=== PATIENT | male | born 1960 | race Caucasian/White ===

== ENCOUNTER 2017-04-22 11:28 | Emergency (ER) | payer OTHER ==
[~2017-04-22] VITALS: Wt 70.0 kg
[~2017-04-22 11:28] MED LIST: HYDR28CR43 TOP; IBUP-1542 PO
[2017-04-22] MEDS ORDERED: IBUP-1542 PO (11:38)
[2017-04-22] MEDS ORDERED: DOCU-144 PO (11:38)
--- NOTE | 2017-04-22 11:43 | ERD ---
ER Documentation Chief Complaint Date/Time DATE: 04/22/17 TIME: 11:40 Chief Complaint HPI 57-year-old man here for medical clearance after being arrested by [employer] officers. Patient suffered a right clavicle fracture 3 days ago and stayed at [facility] emergency department all last night because of complaints of pain, he states he was discharged with prescriptions for morphine and [place] which he no longer has. He states he wants analgesics for right clavicle pain. He denies recent head or neck injury, no fevers or chills, no chest pain or shortness of breath. He also states he has constipation and would like a prescription of Colace. ROS All systems reviewed and are negative except as per history of present illness. Medications Home Meds Active Scripts Docusate Sodium* (Colace*) 100 Mg Capsule, 100 MG PO BID for CONSTIPATION, #30 CAP Prov:SERENA PICKENS MD 04/22/17 Ibuprofen* (Ibuprofen*) 600 Mg Tablet, 600 MG PO Q8 for PAIN AND/OR INFLAMMATION , #30 TAB Prov:SERENA PICKENS MD 04/22/17 Ibuprofen* (Ibuprofen*) 600 Mg Tablet, 600 MG PO Q8 for PAIN AND/OR INFLAMMATION , #30 TAB Prov:SERENA PICKENS MD 04/08/16 Hydrocortisone (Neosporin) 1% - 28 Gm Cream..g., 1 APPLIC TOP BID for 14 Days, # 1 TUB Prov:SERENA PICKENS MD 04/08/16 Allergies Allergies: Coded Allergies: No Known Allergy (Unverified , 04/08/16) PMhx/Soc Opioid abuse, constipation, recent fractured clavicle History of Surgery: Yes (KNEE SURGERY) Anesthesia Reaction: No Hx Neurological Disorder: No Hx Respiratory Disorders: No Hx Cardiac Disorders: No Hx Psychiatric Problems: No Hx Miscellaneous Medical Probl: Yes (C5,C6,C7 spine problem,R wrist fx) Hx Alcohol Use: No Hx Substance Use: No Hx Tobacco Use: Yes FmHx Family History: No diabetes Physical Exam Vitals Per nurses records Physical Exam GENERAL: Well-developed, well-nourished, well-hydrated, in no apparent distress , looks nontoxic in appearance HEENT: Moist mucous membranes, pink conjunctiva, no cervical spine tenderness or step-off deformities, no goiter, no jaundice or icterus, extraocular movements intact without pain. No submandibular induration, and no pharyngeal erythema NEURO: Alert and oriented 3, cranial nerves II through XII intact bilaterally, pupils equal round reactive to light, no focal deficits or facial asymmetry, sensation intact distally Strength 5/5 in upper and lower extremities bilaterally CARDIAC: Regular rate and rhythm, no murmurs rubs or gallops LUNGS: Clear bilaterally no wheezing crackles or stridor ABDOMEN: Soft nontender, no guarding, no rigidity, no rebound, no psoas sign no obturator sign. Normoactive bowel sounds SKIN: Warm and dry to touch, no abrasions, contusions, or hematomas, no lacerations, no ecchymosis, no target lesions, and without ulcers EXTREMITIES: Right upper extremity in a sling distal pulses equal bilateral distal sensation equal bilaterally, cap refill less than 2 seconds, sensation to the median, ulnar, radial nerves intact and equal bilaterally. Mild nonerythematous deformity to the anterior mid right clavicle without obvious ecchymosis. PSYCH: Normal affect without agitation or irritability Results 24 hrs Current Medications Medications (Trade) Dose Ordered Sig/Jennyfer Route PRN Reason Start Time Stop Time Status Last Admin Dose Admin Oxycodone/ Acetaminophen (Percocet (5/ 325)) 1 tab ONCE ONCE PO 04/22/17 12:00 04/22/17 12:01 Procedures/MDM I administered Percocet 1 tablet p.o. Patient is okay to book, medically cleared. Differential diagnoses considered, included but not limited to acute coronary syndrome, pulmonary embolism, aortic dissection, abdominal aortic aneurysm, sepsis, stroke, meningitis, encephalitis, pneumonia, appendicitis, cholecystitis , bowel obstruction, pyelonephritis, nephrolithiasis, cystitis, as well as metabolic, hematologic, and electrolyte abnormalities. As well as abscess, cellulitis, fractures, and dislocations. Patient feels much better at this time, and vital signs are normal, symptoms have improved. I did give strict instructions to return to the ED if symptoms continue or worsen, patient will otherwise follow-up with primary care physician. Patient understood instructions and agreed to plan. Disclaimer: Inadvertent spelling and grammatical errors are likely due to EHR/ dictation software use and do not reflect on the overall quality of patient care. Also, please note that the electronic time recorded on this note does not necessarily reflect the actual time of the patient encounter. Departure Diagnosis: Primary Impression: Clavicle pain Additional Impression: Constipation Constipation type: slow transit constipation Qualified Code: K59.01 - Slow transit constipation Condition: Good Patient Instructions: Fracture, Clavicle, Nursing Home Clearance SERENA PICKENS MD Apr 22, 2017 11:43
[2017-04-22 11:57] VITALS: BP 124/84; PULSE 78; RESP 21; TEMP 97.9
[2017-04-22] MEDS ORDERED: OXYCODONE/ACETAMINOPHEN (5/325) TAB PO ONE (12:00)
== END 2017-04-22 12:02 | disposition home or self-care (01) ==
LOC: E/R 11:28
DX: M25.511 Pain in right shoulder (principal); K59.01 Slow transit constipation; Z87.891 Personal history of nicotine dependence
CPT/HCPCS: 99283

== ENCOUNTER 2019-02-23 00:50 | Emergency (ER) | payer OTHER ==
[~2019-02-23] VITALS: Ht 165.1 cm; Wt 65.0 kg
[~2019-02-23 00:50] MED LIST changes: +DOCU-144 PO
[2019-02-23 00:51] VITALS: BP 142/88; PULSE 82; RESP 16; Ht 165.1 cm; Wt 65.0 kg
[2019-02-23] MEDS ORDERED: OXYCODONE/ACETAMINOPHEN (5/325) TAB PO ONE (01:30)
--- NOTE | 2019-02-23 01:31 | ERD ---
ER Documentation Chief Complaint Chief Complaint Pt c/o back pain that is getting worse, pt is threatening to kill EMS HPI This is a 59-year-old male who presents for evaluation of acute on chronic back pain. Patient presents brought in by EMS, he was initially agitated because he wanted to go to [place], stating that he has been seen in the past, he has chronic back pain from multiple surgeries, he states that he only goes to the ER when his back pain is severe. He has received Percocet for this in the past. Once patient was roomed, spoke with him, he was apologetic for his behavior towards EMS, denies any suicidal or homicidal ideations. ROS All systems reviewed and are negative except as per history of present illness. Medications Home Meds Active Scripts Docusate Sodium* (Colace*) 100 Mg Capsule, 100 MG PO BID for CONSTIPATION, #30 CAP Prov:SERENA PICKENS MD 04/22/17 Ibuprofen* (Ibuprofen*) 600 Mg Tablet, 600 MG PO Q8 for PAIN AND/OR INFLAMMATION, #30 TAB Prov:SERENA PICKENS MD 04/22/17 Ibuprofen* (Ibuprofen*) 600 Mg Tablet, 600 MG PO Q8 for PAIN AND/OR INFLAMMATION, #30 TAB Prov:SERENA PICKENS MD 04/08/16 Hydrocortisone (Neosporin) 1% - 28 Gm Cream..g., 1 APPLIC TOP BID for 14 Days, # 1 TUB Prov:SERENA PICKENS MD 04/08/16 Allergies Allergies: Coded Allergies: No Known Allergy (Unverified , 04/08/16) PMhx/Soc History of Surgery: Yes (KNEE SURGERY) Anesthesia Reaction: No Hx Neurological Disorder: No Hx Respiratory Disorders: No Hx Cardiac Disorders: No Hx Psychiatric Problems: No Hx Miscellaneous Medical Probl: Yes (C5,C6,C7 spine problem,R wrist fx) Hx Alcohol Use: Yes Hx Substance Use: Yes Hx Tobacco Use: Yes Physical Exam Vitals Vital Signs Date Temp Pulse Resp B/P (MAP) Pulse Ox O2 O2 Flow FiO2 Time Delivery Rate 02/23/19 98.3 82 16 142/88 98 00:51 (106) Physical Exam Const: No acute distress Head: Atraumatic Eyes: Normal conjunctiva ENT: Normal external ears, nose and mouth. Neck: Resp: Normal respiratory effort Cardio: Abd: Abdomen is soft nontender, nondistended with no rebound or guarding. Skin: Back: There is diffuse tenderness noted over the back, there is no step-off, no flank pain Ext: Neur: Awake and alert Psych: Normal mood and affect Procedures/MDM 59-year-old male presents for acute on chronic back pain. Patient has no neurologic deficits, and no red flags concerning for an emergent cause of back pain. His symptoms are chronic in nature, there may be a component of drug- seeking behavior the patient, and I addressed this with him, however he he does have real pathology, and had an extensive discussion with him, I advised him that he would need to follow-up with his primary care doctor for his chronic pain management, in the interim, a prescription for 7 Percocet pills, as well as on Narcan prescription. Patient was agreeable to this, at discharge she was in no distress. Departure Diagnosis: Primary Impression: Back pain Back pain location: back pain in unspecified location Chronicity: unspecified Back pain laterality: unspecified Qualified Codes: M54.9 - Dorsalgia, unspecified Condition: Stable Patient Instructions: Back Pain (Acute Or Chronic) SERENA MINA MD Feb 23, 2019 01:31
[2019-02-23] MEDS ORDERED: OXYC-279 PO (01:32)
[2019-02-23] MEDS ORDERED: NALO4SPR NS (01:33)
== END 2019-02-23 01:39 | disposition home or self-care (01) ==
LOC: E/R 00:50
DX: M54.9 Dorsalgia, unspecified (principal); Z87.891 Personal history of nicotine dependence
CPT/HCPCS: Z7502; Z7610; 99283

== ENCOUNTER 2019-02-28 09:43 | Emergency (ER) | payer OTHER ==
[~2019-02-28] VITALS: Ht 170.2 cm; Wt 65.0 kg
[~2019-02-28 09:43] MED LIST changes: +NALO4SPR NS; +OXYC-279 PO
[2019-02-28 09:45] VITALS: Ht 170.2 cm; Wt 65.0 kg
[2019-02-28] MEDS ORDERED: HALOPERIDOL 5 MG INJ ONE (10:06)
[2019-02-28] MEDS ORDERED: LORAZEPAM 2 MG INJ IM ONE ×3 (10:30→18:00)
--- NOTE | 2019-02-28 13:05 | ERD ---
ER Documentation Chief Complaint Chief Complaint BIB [facility] AND [employer] FOR AGITATION. PT HOMELESS HX OF SCHIZO HPI This is a 59-year-old man brought in by [employer]. Bystanders called and said he was acting agitated. The patient was brought in by the fire department. The patient is very belligerent, he is cursing at ER staff and cursing at police and farming. The patient says he wants to kill everyone and kill himself. He admits to drinking alcohol and is intoxicated he states. He is refusing any blood draw whatsoever. Patient is awake and alert and oriented denies any pain. ROS All systems reviewed and are negative except as per history of present illness. Medications Home Meds Active Scripts Naloxone HCl nasal spray (Narcan 4 mg/0.1 mL nasal) 4 Mg [place], 4 MG NS .Q2MIN PRN for OPIOID OVERDOSE, #2 SPRAY [place] entire contents in one nostril, may repeat in alternate nostril in 2-3 minutes if no or minimal response Prov:SERENA MINA MD 02/23/19 Oxycodone HCl/Acetaminophen (Percocet 5-325 mg Tablet) 1 Each Tablet, 1 EACH PO Q8 PRN for PAIN, #7 TAB Prov:SERENA IMNA MD 02/23/19 Discontinued Scripts Docusate Sodium* (Colace*) 100 Mg Capsule, 100 MG PO BID for CONSTIPATION, #30 CAP Prov:SERENA PICKENS MD 04/22/17 Ibuprofen* (Ibuprofen*) 600 Mg Tablet, 600 MG PO Q8 for PAIN AND/OR INFLAMMATION, #30 TAB Prov:SERENA PICKENS MD 04/22/17 Ibuprofen* (Ibuprofen*) 600 Mg Tablet, 600 MG PO Q8 for PAIN AND/OR INFLAMMATION, #30 TAB Prov:SERENA PICKENS MD 04/08/16 Hydrocortisone (Neosporin) 1% - 28 Gm Cream..g., 1 APPLIC TOP BID for 14 Days, #1 TUB Prov:SERENA PICKENS MD 04/08/16 Allergies Allergies: Coded Allergies: No Known Allergy (Unverified , 02/28/19) PMhx/Soc History of Surgery: Yes (KNEE SURGERY, Lt femur ORIF) Anesthesia Reaction: No Hx Neurological Disorder: No Hx Respiratory Disorders: No Hx Cardiac Disorders: No Hx Psychiatric Problems: No Hx Miscellaneous Medical Probl: Yes (C5,C6,C7 fx, DJD/arthritis, Rt wrist fx, rt clavical fx) Hx Alcohol Use: Yes Hx Substance Use: Yes (denies- previous) Hx Tobacco Use: Yes Smoking Status: Current every day smoker FmHx Family History: No coronary disease Physical Exam Vitals Vital Signs Date Temp Pulse Resp B/P (MAP) Pulse Ox O2 O2 Flow FiO2 Time Delivery Rate 02/28/19 97.9 58 17 128/99 99 09:45 (109) Physical Exam Const: No acute distress Head: Atraumatic Eyes: Normal Conjunctiva ENT: Normal External Ears, Nose and Mouth. Neck: Full range of motion. No meningismus. Resp: Clear to auscultation bilaterally Cardio: Regular rate and rhythm, no murmurs Abd: Soft, non tender, non distended. Normal bowel sounds Skin: No petechiae or rashes Back: No midline or flank tenderness Ext: No cyanosis, or edema Neur: Awake and alert Psych: Very agitated, cursing and yelling Results 24 hrs Current Medications Medications Dose Sig/Jennyfer Start Time Status Last (Trade) Ordered Route PRN Stop Time Admin Dose Reason Admin Lorazepam 2 mg ONCE ONCE 02/28/19 DC (Ativan) IM 10:30 02/28/19 10:31 Haloperidol 5 mg STK-MED 02/28/19 DC (Haldol) ONCE .ROUTE 10:06 02/28/19 10:07 Procedures/MDM Patient is refusing any labs whatsoever. We did give him some Ativan and Haldol to calm down. We are going to wait for the alcohol to wear off and have him assessed by psychiatry to see if he needs to be on a hold/inpatient, and hopefully he will agree to lab work. Psychiatry eval is negative we will discharge him home Departure Diagnosis: Primary Impression: Agitation Condition: Stable MARKO RAMIREZ DO Feb 28, 2019 13:05
[2019-02-28] MEDS ORDERED: HALOPERIDOL 5 MG INJ IM ONE ×2 (14:00→18:00)
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
[2019-02-28] MEDS ORDERED: OLANZAPINE 5 MG TAB PO ONE (17:30)
[2019-02-28 22:45] VITALS: BP 122/80; PULSE 76; RESP 16
== END 2019-02-28 22:45 | disposition short-term general hospital (02) ==
LOC: E/R 09:43
DX: R45.1 Restlessness and agitation (principal); F17.210 Nicotine dependence, cigarettes, uncomplicated; Z59.0 Homelessness
CPT/HCPCS: 80053; 80307; 85025; J1630; J2060; Z7610; 96372